=== PATIENT | female | born 1965 | race Caucasian/White ===

== ENCOUNTER 2017-02-06 15:30 | Observation (INO) | payer BC ==
[2017-02-06 16:14] VITALS: BMI 34.9
--- NOTE | 2017-02-10 00:18 | HP ---
DATE OF ADMISSION: 02/10/2017 HISTORY OF PRESENT ILLNESS: This is a 51-year-old G0 with complaints of menometrorrhagia and recurre nt urinary tract infection, urinary incontinence and enlarged fibroid uterus. The patient has had pe rimenopausal pattern bleeding. She has a medical history of cerebral palsy and is wheelchair bound, chronic hypertension, hypothyroidism, and has severely painful periods that occur on irregular basis sometimes multiple times per month. She declined to undergo medical management, and it was felt her incontinence and bowel symptoms, urge, constipation may be affected by her enlarged fibroid uterus an d desired to undergo definitive treatment with hysterectomy. PAST MEDICAL HISTORY: Cerebral palsy, wheelchair bound, recurrent UTIs, hypothyroidism, chronic hype rtension, and migraine headaches, lichen sclerosus and urinary incontinence. OBSTETRIC HISTORY: G0. GYNECOLOGIC HISTORY: No abnormal Paps, no STDs. PAST SURGICAL HISTORY: Tendon lengthening surgery x2 approximately twenty years ago and eye surgery. SOCIAL HISTORY: Negative x3. CURRENT MEDICATIONS: Bactrim-DS 1 p.o. b.i.d. x7 days, fluoxetine 20 mg p.o. daily, levothyroxine 75 mcg p.o. daily, spironolactone 25 mg p.o. daily, tramadol 50 mg p.o. at bedtime, Estrace cream vagin ally twice weekly, clobetasol ointment p.r.n. vulvar complaints. ALLERGIES: CODEINE causes nausea. FAMILY HISTORY: Unknown. PHYSICAL EXAMINATION: VITAL SIGNS: Blood pressure 130/89, pulse 87, weight is 225, BMI is 36.9, respirations 18. GENERAL: No acute distress. CARDIAC: Regular rate and rhythm. LUNGS: Clear to auscultation bilaterally. ABDOMEN: Soft, nontender, nondistended. EXTREMITIES: No edema, cyanosis or clubbing. PELVIC: Deferred to the OR. IMAGING: Transvaginal ultrasound showed a uterus measuring 9 x 6.43 cm, posterior fibroid measuring 2.4 x 2.4 cm and an additional fibroid posteriorly measuring 3.4 x 3.57 cm. Endometrium was 7 mm. R ight ovary not visualized. Left ovary was normal appearing with no free fluid. ASSESSMENT AND PLAN: This is a 51-year-old G0 with cerebral palsy. Planned to undergo total laparos copic hysterectomy, bilateral salpingectomy for menometrorrhagia and uterine fibroids. She discussed the risks, benefits, and alternatives of surgery including risk of bleeding, transfusion, infection, damage to surrounding structures or conversion to open procedure, ovarian retention as long as the o varies are normal appearing. She has recently been on Bactrim for symptoms of a urinary tract infect ion and will continue this until surgery. She will also take Diflucan x2 doses prior to surgery and we will start on a bowel regimen for prevention of postoperative constipation. She voiced understand ing and wishes to proceed. She will follow up with me in 2 and 6 weeks postoperatively. Postoperati ve care were discussed with the patient and her and they voiced understanding.
[2017-02-10] MEDS ORDERED: CEFAZOLIN/Water 2 GM/20 ML SYRINGE ONE (05:58)
[2017-02-10] MEDS ORDERED: Famotidine/PF 20 mg/2ml Vial ONE (06:46)
[2017-02-10] MEDS ORDERED: Bupivacaine/Epinephrine 0.25% 30 ML VIAL ONE (06:49)
[2017-02-10] MEDS ORDERED: Scopolamine 1.5 mg/72 hour Patch ONE (06:53)
[2017-02-10] MEDS ORDERED: Midazolam HCl 2 mg/2 ml Vial ONE (07:14)
[2017-02-10] MEDS ORDERED: Fentanyl 250 MCG/5 ML VIAL ONE (07:21)
[2017-02-10] MEDS ORDERED: HYDROmorphone 0.5 MG/0.5 ML SYRINGE ONE (07:22)
[2017-02-10] MEDS ORDERED: Promethazine HCl 25 MG/ML VIAL ONE (07:30)
[2017-02-10] MEDS ORDERED: Vecuronium 10 MG VIAL ONE ×2 (09:21→15:55)
[2017-02-10] MEDS ORDERED: Simethicone Chewable 80 MG TAB PO PRN (10:39)
[2017-02-10] MEDS ORDERED: Albuterol Sulfate 1.25 MG/3 ML NEB NEB PRN (10:39)
[2017-02-10] MEDS ORDERED: Zolpidem Tartrate 5 MG TAB PO PRN (10:39)
[2017-02-10] MEDS ORDERED: Bisacodyl 10 MG SUPP PR PRN (10:39)
[2017-02-10] MEDS ORDERED: traMADol HCl 50 MG TAB PO PRN ×2 (10:39)
[2017-02-10] MEDS ORDERED: Acetaminophen 325 MG TAB PO PRN (10:39)
[2017-02-10] MEDS ORDERED: Promethazine HCl 25 MG/ML VIAL IM PRN ×2 (10:39→10:48)
[2017-02-10] MEDS ORDERED: Ondansetron HCl/PF 4 MG/2 ML Vial IVP PRN ×2 (10:39→10:48)
[2017-02-10] MEDS ORDERED: diphenhydrAMINE 25 MG CAP PO PRN (10:39)
[2017-02-10] MEDS ORDERED: SUMAtriptan Succinate 25 MG TAB PO PRN (10:43)
[2017-02-10] MEDS ORDERED: Estradiol 0.1mg/24 Hour Patch (Weekly) TD SCH (10:45)
[2017-02-10] MEDS ORDERED: Ketorolac Tromethamine 30 MG/ML VIAL IVP PRN (10:48)
[2017-02-10] MEDS ORDERED: Promethazine HCl 25 MG/ML VIAL SLOW IVP PRN (10:48)
[2017-02-10] MEDS ORDERED: Morphine Sulfate 2 MG/ML SYRINGE SLOW IVP PRN (10:48)
[2017-02-10] MEDS ORDERED: HYDROmorphone 2 MG/ML VIAL SLOW IVP PRN (10:48)
[2017-02-10] MEDS ORDERED: Morphine 4 MG/ML VIAL SLOW IVP PRN (12:00)
[2017-02-10] MEDS: Ketorolac Tromethamine 30 MG/ML VIAL IVP SCH ×3 (12:58→23:49)
[2017-02-10] MEDS: Lactated Ringer's 1,000 ML IV SCH ×3 (13:00→23:49)
--- NOTE | 2017-02-10 13:51 | OP ---
DATE OF OPERATION: 02/10/2017 PREOPERATIVE DIAGNOSES: 1. Menometrorrhagia. 2. Pelvic pain. 3. Uterine fibroids. 4. Urinary incontinence. POSTOPERATIVE DIAGNOSES: 1. Menometrorrhagia. 2. Pelvic pain. 3. Uterine fibroids. 4. Urinary incontinence. 5. Stage 4 endometriosis. PROCEDURES: Robotic-assisted total laparoscopic hysterectomy, bilateral salpingo-oophorectomy, lysis of adhesions and extracorporeal morcellation. ANESTHESIA: General endotracheal. ATTENDING SURGEON: Tracy Diallo M.D. PROFESSOR OF SPECIAL EDUCATION SURGEON: Destiny Hollis M.D. ESTIMATED BLOOD LOSS: 100 mL. INTRAVENOUS FLUIDS: 1100 mL crystalloid. URINE OUTPUT: 150 mL of clear urine. COMPLICATIONS: None. DRAINS: Rai catheter. PATHOLOGY: Uterus, cervix, bilateral fallopian tubes and ovaries. FINDINGS: On exam under anesthesia, patient has Lichen sclerosus plaque on bilateral vulva and peria nal skin. No evidence of infection. The vaginal mucosa is atrophic. The cervix is normal appearing . Uterus sounded to 12 cm and approximately 16 weeks' size uterus was noted, multiple fibroids. On intra-abdominal survey, there were dense adhesions of both ovaries to other structures. The right ov echo was adherent to the posterior cul-de-sac and the bowel. The left ovary was adherent anteriorly a nd twisted upon itself x1, down to the bladder, and the round ligament. There were multiple large fi broids present and the bowel was adherent to the posterior vagina and cervix obliterating the cul-de- sac. There were endometriotic implants present in the pelvis, mainly on the pelvic sidewalls and pos teriorly, there were not any visible lesions on the bladder or the upper abdomen. OPERATIVE TECHNIQUE: The patient was taken to the operating room where general anesthesia was obtain ed without difficulty. The patient was prepped and draped in a sterile fashion in the dorsal lithoto my position with arms tucked. After performing a time out, a Rai catheter was placed in the bladde r and a speculum was placed in the vagina. The anterior lip of the cervix was grasped with a single- tooth tenaculum. The cervix was progressively dilated with John dilators and the uterus then sounded to 12 cm. The REMEDIOS manipulator was assembled with 3.5 cm colpotomizer ring and a 12 cm tip. The ti p was inserted into the uterine, fundus and the balloon was inflated. The tenaculum and speculum wer e removed out of the vagina and the colpotomizer ring was advanced to snugly around the cervix. The tip balloon and the vaginal occluder balloon were then inflated. After ensuring a snug fit of the co lpotomizer ring and legs were placed in low lithotomy, attention was turned to the abdomen. A 12 mm skin incision approximately 2 fingerbreadths above the umbilicus was made after infiltrating with 0.2 5% Marcaine with epinephrine. The Veress needle was passed into the abdomen noting an opening pressu re of 3 mmHg. Pneumoperitoneum was obtained without difficulty. The Veress needle was removed and t he 12 mm trocar was passed into the abdomen confirming placement with the robotic camera. Trendelenb urg was obtained and the above findings were noted. The lower quadrant robotic trocars were placed b ilaterally after infiltrating with 0.25% Marcaine with epinephrine under direct visualization. The r ight upper quadrant 11 mm port was also placed under direct visualization after infiltrating with ane sthetic. The robot was undocked and the right robotic arm contained the monopolar scissors. The lef t robotic arm contained a fenestrated bipolar. The surgeon console then took control and evaluated t he anatomy, at that time it was made to proceed with bilateral salpingo-oophorectomy secondary to the severe endometriosis that was found. The left IP ligament was on stretch secondary to the adhesion of the ovary down anteriorly and this was clamped with the fenestrated and cauterized multiple times, and the IP was transected. This was sequentially cauterized and transected until the round ligament was met more laterally secondary to the dense adhesions. The round ligament was also cauterized and transected, and the adhesions of the ovary to the pelvic sidewall were able to be bluntly peeled zi y. The uterus was then retroverted and at that time, I was able to undermine the anterior leaf of th e broad ligament and transect the vesicouterine peritoneum to create a bladder flap and locate the co lpotomizer ring. This was carried across anteriorly and towards the right side ensuring a clear wind ow underneath. At that time, the hazy fibers were transected with the scissors on cautery and furthe r development of the bladder flap was performed by scoring on the pubocervical fascia and dissecting down distally with the back end of the scissors. The vessels on the left side were then skeletonized using blunt dissection with the fenestrated to develop the pedicle. The vessels were then cauterize d multiple times. Attention was then turned to the patient's right side where the anatomy was more d istorted. The ovary and fallopian tube were adhered posteriorly and so this was approached carefully using a combination of blunt and sharp dissection with scissors and traction countertraction to peel the ovary all the way from the pelvic sidewall; however, there was uncertainty in some of the dissec tion and the proximity to the ureter. Therefore, it was decided that the ovary would be left and the utero-ovarian would be divided and then the ovary later on be dissected off of the peritoneum. Ther efore, the utero-ovarian and fallopian tube were clamped across, cauterized and transected, and this was taken down the lateral side of the right uterus sequentially cauterizing and transecting. The ro und ligament was met and this was cauterized and transected, and at that time, the anterior leaf of t he broad ligament was opened up. The round ligaments bilaterally were very thick and fibrotic appear ing. Adequate bladder flap had been developed; however, secondary to thick scarring on the right edinson e, the pedicle was difficult to visualize of the uterine vessels. At that time, the right ovary was able to be freed up medially from the bowel and the cervix. The majority of the lysis of adhesions w as blunt dissection and using traction-countertraction. The bowel was then addressed that was adhere nt up to the internal os and this was also able to be bluntly taken down carefully to avoid any bowel injury. The colpotomizer ring was identified and the bowel was taken down below the level of the co lpotomizer ring. There was a very thick scarring posteriorly as well. At that time, anterior colpot cornelius was performed and this was carried around to the left angle where the fenestrated was flipped und erneath and cauterized the uterine pedicle again, this was then transected with the scissors and fowler ied around laterally and the posterior colpotomy was performed after ensuring that the bowel was take n down below the level of the colpotomizer ring and the posterior cuff was very thick and fibrotic. This was taken around to the right side and the right side was then approached anteriorly as the vess els had not yet been cauterized. There was a large amount of scarring and fibrosis on the right pedi eliane and this was sequentially clamped, cauterized, and transected to ensure hemostasis during the col potomy. Once the posterior colpotomy had been met, the uterus was completely transected and the uter us was then removed off of the manipulator placed in the upper abdomen and that the applied medical l arge bag was then placed into the vagina and placed in the upper abdomen as well. The ovary was then addressed and was removed easily with traction countertraction and sharp dissection with cold scisso rs, and there was also a fibroid that was laterally in the round ligament that was removed easily wit h blunt dissection. The specimens were placed into the vagina prior to closure. At that time, irrig ation of the vaginal cuff was performed. The pneumoperitoneum was maintained by placing a glove in t he vagina. The scissors were traded out for the needle auto parts delivery driver and the Stratafix barbed suture was us ed to close the cuff in a running fashion incorporating mucosa on each bite and posterior peritoneum and hemostasis was excellent. The needle was removed out of the abdomen. The cuff was irrigated and noted to be hemostatic. Meeta powder was then placed over the vaginal cuff and ovarian pedicles. At that time, the bag was then delivered into the pelvis as well as the uterus. The Meeta was place d on top of the bag and then the string holding the bag together in the middle was clipped and the ut erus then fell into the bag as it deployed open. The string on the bag was then delivered through th e nutrition assistant port to hold the specimen in the bag and this was monitored visually during the entire pr ocess. At that time, the robot was undocked. The incision on the umbilical port was extended to 3 c m including a 3 cm fascial incision and the string of the bag was then delivered through that port si te. The bag was pulled up and the specimen was confirmed to be inside the bag and the small Dave w as then placed into the incision. This was placed inside of the retrieval bag. Subsequently, using C-incision technique, morcellation was performed on the tissue and this took approximately an additio nal 20 minutes. Once all tissue had been removed out of the bag, the Dave and the bag were removed out of the abdomen. Irrigation of the ports was performed and the fascia was then closed with an 0 Vicryl in a running fashion with excellent reapproximation. The skin was closed with 4-0 Monocryl in a subcuticular fashion and Dermabond was applied. The vaginal cuff was checked and noted to have ex cellent closure and hemostatic from below and the patient tolerated the procedure well. Sponge, lap, and needle counts were correct x2. The patient was taken to recovery room in stable condition. Stacie is of adhesions during this case was performed for approximately 30 additional minutes.
[2017-02-10] MEDS ORDERED: Propofol 200 MG/20 ML VIAL ONE (15:55)
[2017-02-10] MEDS ORDERED: Dexamethasone 20 MG/5 ML VIAL ONE (15:55)
[2017-02-10] MEDS ORDERED: Lidocaine 1% PF 5 ML VIAL ONE (15:55)
[2017-02-10] MEDS ORDERED: Ondansetron HCl/PF 4 MG/2 ML Vial ONE (15:55)
[2017-02-10] MEDS ORDERED: Metoclopramide HCl 10 MG/2 ML VIAL ONE (15:55)
[2017-02-10] MEDS ORDERED: Glycopyrrolate 0.2 MG/ML 5 ML SYRINGE ONE (15:55)
[2017-02-10] MEDS ORDERED: FLUoxetine HCl 20 MG CAP PO SCH (21:00)
[2017-02-10] MEDS ORDERED: Montelukast Sodium 10 mg Tablet PO SCH (21:00)
[2017-02-11] MEDS ORDERED: Levothyroxine Sodium 75 MCG TAB PO SCH (06:00)
[2017-02-11] MEDS: Ketorolac Tromethamine 30 MG/ML VIAL IVP SCH (06:10)
[2017-02-11 06:59] LABS: Hematocrit 38.3 % (36.0-47.0); Mean Platelet Volume 8.4 fL (7.4-10.4); Red Blood Cell (RBC) Count 4.35 mill/uL (4.20-5.40); White Blood Cell (WBC) Count 13.1 thou/uL (4.8-10.8)
[2017-02-11 07:44] VITALS: BP 132/79; TEMP 98.3
[2017-02-11] MEDS ORDERED: Spironolactone 25 MG TAB PO SCH (08:00)
[2017-02-11] MEDS ORDERED: Ibuprofen 800 MG TAB PO SCH (08:00)
[2017-02-11] MEDS ORDERED: FLUoxetine HCl 20 MG CAP PO SCH (09:00)
[2017-02-11] MEDS ORDERED: Montelukast Sodium 10 mg Tablet PO SCH (09:00)
[2017-02-11] MEDS ORDERED: Enoxaparin Sodium 40 MG/0.4 ML SYRINGE SC SCH (09:00)
--- NOTE | 2017-02-11 13:05 | DIS ---
DATE OF ADMISSION: 02/10/2017 DATE OF DISCHARGE: 02/11/2017 ADMISSION DIAGNOSES: 1. Uterine fibroids. 2. Menometrorrhagia. 3. Pelvic pain. DISCHARGE DIAGNOSES: Status post robotic-assisted total laparoscopic hysterectomy, bilateral salping o-oophorectomy, lysis of adhesions, and extracorporeal morcellation. DISCHARGE CONDITION: Stable. ATTENDING PHYSICIAN: Tracy Diallo M.D. CONSULTATIONS: None. PROCEDURE: On 02/10/2017, the patient underwent uncomplicated surgery as listed in the discharge rehana gnosis. HISTORY AND PHYSICAL: Please see previously dictated H and P. HOSPITAL COURSE: A 51-year-old presented to day surgery to undergo hysterectomy, which was uncomplic ated with an estimated blood loss of 100 mL. Pathology is pending at the time of discharge. Postope ratively, the patient had a Rai catheter overnight and was able to void spontaneously on the a.m. o f postoperative day #1. She tolerated a regular diet and was able to do her usual transfers on posto perative day #1 as well, as the patient has cerebral palsy and is mostly wheelchair-bound except for transfers. She was started on DVT prophylaxis with Lovenox on postoperative day #1 and we will polo nue this x14 days. She was also prophylactically started on estradiol patch. On the night of postop erative day 0, the patient did report feeling warm and sweating and she had a temperature max of 100. 0 at that time and some mild tachycardia. The patient had no interventions at that time and her temp erature came down to normal as well as her pulse and she remained afebrile with a normal pulse and no rmal blood pressure and normal O2 saturation. She had no localizing symptoms of infection on exam an d she had a urine culture that was pending that showed no growth at 24 hours. She was tolerating her p.o. pain meds and pain was well controlled. PHYSICAL EXAMINATION: Her exam on day of discharge, GENERAL: No acute distress, alert and oriented x3. CARDIAC: Regular rate and rhythm. LUNGS: Clear to auscultation bilaterally. ABDOMEN: Soft, appropriately tender, nondistended with incisions that are clean, dry, and intact, so me bruising around the periumbilical site. EXTREMITIES: Show no edema, cyanosis, or clubbing. DISCHARGE PLAN: The patient is released for discharge with warnings for monitoring temperature and c alling for temperatures greater than 100.4. She will be given pain medicines of tramadol and ibuprof en. She will also continue a bowel regimen of MiraLax 1-2 times per day and she will continue restri ctions of no heavy lifting and pelvic rest until further notice and she will follow up with me in 2 w eeks' postoperative time with final pathology will be reviewed at that time.
== END 2017-02-11 11:05 | disposition home or self-care (01) ==
LOC: INTOOBSV 02-10 05:40 → SURG A 02-10 05:40 → 3SW 02-10 12:33
PROVIDERS: ADMIT Student in an Organized Health Care Education/Training Program; ATTEND Student in an Organized Health Care Education/Training Program
PROC: 0UT94ZZ Resection of Uterus, Percutaneous Endoscopic Approach (ICD-10-PCS; principal; 2017-02-11)
PROC: 0UTC4ZZ Resection of Cervix, Percutaneous Endoscopic Approach (ICD-10-PCS; 2017-02-11)
PROC: 0UT24ZZ Resection of Bilateral Ovaries, Percutaneous Endoscopic Approach (ICD-10-PCS; 2017-02-11)
PROC: 0UT74ZZ Resection of Bilateral Fallopian Tubes, Percutaneous Endoscopic Approach (ICD-10-PCS; 2017-02-11)
DX: D25.1 Intramural leiomyoma of uterus (principal); N80.0 Endometriosis of uterus; N83.209 Unspecified ovarian cyst, unspecified side; R32 Unspecified urinary incontinence; N92.0 Excessive and frequent menstruation with regular cycle; G80.9 Cerebral palsy, unspecified; I10 Essential (primary) hypertension; E03.9 Hypothyroidism, unspecified; G43.909 Migraine, unspecified, not intractable, without status migrainosus; L90.0 Lichen sclerosus et atrophicus; Z87.440 Personal history of urinary (tract) infections; Z88.5 Allergy status to narcotic agent; Z79.891 Long term (current) use of opiate analgesic; Z79.899 Other long term (current) drug therapy; Z98.890 Other specified postprocedural states; Z99.3 Dependence on wheelchair
CPT/HCPCS: 36415; 85027; 87086; 88307; 96361; 96372; 96374; 96376; G0378; J0131; J1100; J1170; J1650; J1885; J2001; J2250; J2405; J2550; J2704; J2765; J3010; S0028

== ENCOUNTER 2017-02-06 15:49 | Outpatient (CLI) | payer BC ==
[2017-02-06 16:38] LABS: Hematocrit 45.9 % (36.0-47.0); Mean Platelet Volume 8.1 fL (7.4-10.4); Red Blood Cell (RBC) Count 5.24 mill/uL (4.20-5.40); White Blood Cell (WBC) Count 9.3 thou/uL (4.8-10.8)
[2017-02-06 16:56] LABS: Anion Gap 12 mmol/L (10-20); BUN (Urea Nitrogen) 10 mg/dL (7.0-18.7); Calc. Creatinine Clearance 0 mL/min (70-130); Calcium 9.4 mg/dL (7.8-10.44); Carbon Dioxide 25 mmol/L (22-29); Chloride 104 mmol/L (98-107); Estimated GFR-MDRD 63
== END 2017-02-06 15:50 | disposition home or self-care (01) ==
LOC: LABBT 15:49
PROVIDERS: ATTEND Student in an Organized Health Care Education/Training Program
DX: Z01.812 Encounter for preprocedural laboratory examination (principal); R10.2 Pelvic and perineal pain; N92.1 Excessive and frequent menstruation with irregular cycle; D25.9 Leiomyoma of uterus, unspecified
CPT/HCPCS: 80048; 84703; 85027; 86850; 86900; 86901